=== PATIENT | male | born 1945 | race Caucasian/White ===

== ENCOUNTER → 2016-11-08 | Outpatient (CLI) | payer MEDICARE | LOC: KOH-I 14:43 | DX: R05 Cough (principal); R06.02 Shortness of breath; R06.2 Wheezing; J43.9 Emphysema, unspecified; J98.4 Other disorders of lung | CPT/HCPCS: 71020 ==

== ENCOUNTER → 2021-07-08 | Outpatient (CLI) | payer MEDICARE ==
[~2021-07-08] MED LIST: BYSTOLIC5 MG PO; CALAN SR240 MG PO; DALIRESP500 MCG PO; ECOTRIN81 MG PO; FLONASE 0.05% N16 GM; FOSAMAX70 MG PO; IPRAT-ALBUT 0.5-3 ML INH; LEVAQUIN500 MG PO; MYCOSTATIN100000 UTS PO; OSCAL PO; PEPCID40 MG PO; PREDNISONE10 M1 PO; PREDNISONE20 MG PO; PROAIR HFA8.5 GM INH; PULMICORT0.5 MG/21 INH; SINGULAIR10 MG PO; VIBRAMYCIN100 MG PO; VITAMIN D32000 UNI1 PO; ZESTRIL30 MG PO; ZOCOR10 MG PO
== END ==
LOC: CT 07-01 15:30
DX: R91.1 Solitary pulmonary nodule (principal); J43.9 Emphysema, unspecified; R91.8 Other nonspecific abnormal finding of lung field
CPT/HCPCS: 36415; 71260; 82565; 84520; Q9967

== ENCOUNTER 2021-11-24 10:17 | Inpatient (IN) | payer MEDICARE ==
[~2021-11-24] VITALS: Ht 200.7 cm; Wt 67.8 kg
[~2021-11-24 10:17] MED LIST changes: +BYSTOLIC10 MG PO; -BYSTOLIC5 MG PO; -CALAN SR240 MG PO; -FLONASE 0.05% N16 GM; -ZESTRIL30 MG PO; +ZESTRIL40 MG PO
[2021-11-24 11:06] LABS: RED BLOOD COUNT 4.9 M/UL (4.20-5.50); WHITE BLOOD COUNT 10.4 K/UL (4.5-11.0)
[2021-11-24 11:36] LABS: BUN/CREATININE RATIO 10 (0-10)
[2021-11-24] MEDS ORDERED: ACTONEL35 MG PO (18:19)
[2021-11-24] MEDS ORDERED: DALIRESP500 MCG PO (18:20)
[2021-11-24] MEDS ORDERED: FAMOTIDINE40 MG PO (18:20)
[2021-11-24] MEDS ORDERED: MELOXICAM7.5 MG PO (18:25)
[2021-11-24] MEDS ORDERED: MONTELUKAST SOD10 MG PO (18:26)
[2021-11-24] MEDS ORDERED: VITAMIN C1000 MG PO ×2 (18:27→18:30)
[2021-11-24] MEDS ORDERED: CALCIUM 600 +1 EAC3 PO (18:28)
[2021-11-24] MEDS ORDERED: CETIRIZINE HCL10 MG PO (19:43)
[2021-11-24] MEDS ORDERED: FLONASE 0.05% N16 GM (20:23)
[2021-11-24] MEDS ORDERED: VERELAN PM100 MG PO (20:36)
[2021-11-25 04:01] LABS: HEMOGLOBIN 13.5 gm/dl (14.0-17.5); RED BLOOD COUNT 4.77 M/UL (4.20-5.50)
[2021-11-25 04:07] LABS: WHITE BLOOD COUNT 6.8 K/UL (4.5-11.0)
[2021-11-25 05:08] LABS: BUN/CREATININE RATIO 18 (0-10)
[2021-11-26 03:57] LABS: CANDIDA ALBICANS Not Detected (Negative); CANDIDA KRUSEI Not Detected (Negative); CANDIDA TROPICALIS Not Detected (Negative); ESCHERICHIA COLI Not Detected (Negative); HAEMOPHILUS INFLUENZAE Not Detected (Negative); KLEBSIELLA OXYTOCA Not Detected (Negative); KLEBSIELLA PNEUMONIAE Not Detected (Negative); KPC-CARBAPENEM-RESISTANCE GENE Not Detected (Negative); PROTEUS Not Detected (Negative); PSEUDOMONAS AERUGINOSA Not Detected (Negative); SERRATIA MARCESANS Not Detected (Negative); STAPHYLOCOCCUS AUREUS Not Detected (Negative); STREP AGALACTIAE (GROUP B) Not Detected (Negative); STREP PYOGENES (GROUP A) Not Detected (Negative); STREPTOCOCCUS Not Detected (Negative); vanA/B (VANCOMYCIN RESIST GENE Not Detected (Negative)
[2021-11-26 05:16] LABS: STAPHYLOCOCCUS DETECTED (Negative)
[2021-11-26 06:32] LABS: HEMOGLOBIN 13.5 gm/dl (14.0-17.5); RED BLOOD COUNT 4.76 M/UL (4.20-5.50)
[2021-11-26 06:39] LABS: WHITE BLOOD COUNT 12.8 K/UL (4.5-11.0)
[2021-11-26 06:59] LABS: BUN/CREATININE RATIO 14 (0-10)
[2021-11-27 07:19] LABS: BUN/CREATININE RATIO 17 (0-10)
[2021-11-28 05:14] LABS: BUN/CREATININE RATIO 19 (0-10)
[2021-11-29 03:12] LABS: BUN/CREATININE RATIO 26 (0-10)
[2021-11-30 06:55] LABS: BUN/CREATININE RATIO 22 (0-10)
[2021-11-30] MEDS ORDERED: HUMIBID LA TAB600 MG PO (12:33)
[2021-11-30] MEDS ORDERED: PREDNISONE 10 M10 MG PO (12:33)
[2021-11-30] MEDS ORDERED: AMLODIPINE BESYL5 MG PO (12:33)
[2021-11-30] MEDS ORDERED: CEFUROXIME500 MG PO (12:33)
== END 2021-11-30 15:53 | disposition home health service (06) | DRG 177 ==
LOC: ER1 10:17 → MED SURG 4 13:12 → CDU 13:12 → MED SURG 4 20:51
PROVIDERS: Emergency Medicine; Internal Medicine; Physician Assistant Medical; ADMIT Internal Medicine
PROC: 8E0ZXY6 Isolation (ICD-10-PCS; principal; 2021-11-24)
PROC: XW033E5 Introduction of Remdesivir Anti-infective into Peripheral Vein, Percutaneous Approach, New Technology Group 5 (ICD-10-PCS; 2021-11-24)
PROC: 3E0333Z Introduction of Anti-inflammatory into Peripheral Vein, Percutaneous Approach (ICD-10-PCS; 2021-11-24)
PROC: 5A0935A Assistance with Respiratory Ventilation, Less than 24 Consecutive Hours, High Flow/Velocity Cannula (ICD-10-PCS; 2021-11-28)
DX: U07.1 COVID-19 (principal); J12.82 Pneumonia due to coronavirus disease 2019; J96.21 Acute and chronic respiratory failure with hypoxia; J44.1 Chronic obstructive pulmonary disease with (acute) exacerbation; J44.0 Chronic obstructive pulmonary disease with (acute) lower respiratory infection; I25.10 Atherosclerotic heart disease of native coronary artery without angina pectoris; M19.91 Primary osteoarthritis, unspecified site; N40.0 Benign prostatic hyperplasia without lower urinary tract symptoms; Z66 Do not resuscitate; I10 Essential (primary) hypertension; Z20.822 Contact with and (suspected) exposure to COVID-19; Z95.1 Presence of aortocoronary bypass graft; Z90.49 Acquired absence of other specified parts of digestive tract; Z98.890 Other specified postprocedural states; Z87.891 Personal history of nicotine dependence; Z85.46 Personal history of malignant neoplasm of prostate
CPT/HCPCS: 0240U; 36415; 36600; 71045; 80048; 80053; 80202; 81001; 82550; 82553; 82728; 82803; 83605; 83735; 83880; 84484; 85025; 85027; 85379; 85730; 86140; 87040; 87077; 87150; 93005; 94640; 94664; 94760; 96372; 96374; 96375; 96376; 97116; 97116-GP-CQ; 97162; 99285; G0378; J0248; J0696; J1100; J1650; J3370; J7030; J7070